=== PATIENT | female | born 1945 | race Caucasian/White ===

== ENCOUNTER → 2017-02-22 | Outpatient (CLI) | payer OTHER | LOC: FIMAGING 15:29 | DX: Z12.31 Encounter for screening mammogram for malignant neoplasm of breast (principal) | CPT/HCPCS: G0202 ==

== ENCOUNTER 2018-02-17 16:21 | Observation (INO) | payer OTHER, MEDICARE ==
--- NOTE | 2018-02-17 17:02 | EDPHY ---
H & P Stated Complaint: shaky, weakness Time Seen by Provider: 02/17/18 17:02 - Personal History Current Tetanus/Diphtheria Vaccine: No Current Tetanus Diphtheria and Acellular Pertussis (TDAP): No - Medical/Surgical History Hx Asthma: No Hx Chronic Respiratory Disease: No Hx Diabetes: No Hx Cardiac Disease: No Hx Renal Disease: No Hx Cirrhosis: No Hx Alcoholism: No Hx HIV/AIDS: No Hx Splenectomy or Spleen Trauma: No Other PMH: cataract surgery BRANDT, PNA, - Social History Smoking Status: Never smoked Constitutional: Initial Vital Signs Temperature (C) 36.5 C 02/17/18 16:27 Heart Rate 83 02/17/18 16:27 Respiratory Rate 16 02/17/18 16:27 Blood Pressure 153/66 H 02/17/18 16:27 O2 Sat (%) 96 02/17/18 16:27 O2 Delivery Mode Room Air Allergies/Adverse Reactions: No Known Allergies Allergy (Unverified 02/17/18 16:27) Home Medications: Medication Instructions Recorded NK [No Known Home Meds] 02/17/18 Medical Decision Making - Diagnostics Imaging Results: Imaging Impressions Chest X-Ray 02/17/18 17:13 Impression: No evidence of acute cardiopulmonary abnormality. Stable chronic findings as above. ED Course/Re-evaluation: CHIEF COMPLAINT: Near syncope, chest pain HISTORY OF PRESENT ILLNESS: The patient is a 72 y/o female arriving via private car complaining of an episode of near syncope and chest pain. Previously , she had an episode of chest pain during a stressful period of her life and a heart monitor showed no significant findings. Around 2:00 PM today, 3 hours ago , she walked up stairs to prepare for an appointment when she looked in the mirror and felt she was pale appearing. Within a minute, she started feeling shaky, faint, and had a near syncopal episode. This episode was accompanied by a pressure in her chest. She attributed her symptoms to hypoglycemia and had a piece of pizza. After eating, she still had the pressure in her chest and shakiness in her hands. Her symptoms have improved but she continues to have milder pressure in her chest. She denies shortness of breath or any other associated symptoms. She has not had a stress test. She is under considerable stress. REVIEW OF SYSTEMS: A 10 point review of systems was performed and is negative with the exception of the elements mentioned in the history of present illness. PHYSICAL EXAM: HR, BP, O2 Sat, RR. Temp noted General Appearance: Alert, well hydrated, appropriate, and non-toxic appearing. Head: Atraumatic without scalp tenderness or obvious injury Eyes: Pupils equal, round, reactive to light and accommodation, EOMI, no trauma , no injection. Ears: Clear bilaterally, no perforation, normal landmarks Nose: Atraumatic, no rhinorrhea, clear. Throat: There is no erythema or exudates, no lesions, normal tonsils, mucus membranes moist. Neck: Supple, 2+ carotid upstroke, nontender, no lymphadenopathy. Respiratory: No retractions, no distress, no wheezes, and no accessory muscle use. Lungs are clear to auscultation bilaterally. Cardiovascular: Regular rate and rhythm, no murmurs, rubs, or gallops. Good capillary refill all extremities. Gastrointestinal: Abdomen is soft, nontender, non-distended, no masses, no rebound, no guarding, no peritoneal signs. Musculoskeletal: Normal active ROM of all extremities, atraumatic. Neurological: Alert, appropriate, and interactive. Skin: No rashes, good turgor, no nodules on palpation. Past medical history: Denies Past surgical history: Denies Family history: Congestive heart failure (father), arrhythmia (brother) Social history: Lives in [place], non-smoker, employed DIAGNOSTICS/PROCEDURES/CRITICAL CARE TIME: The 12 lead EKG was interpreted by myself. Questionable ST inferior depression, poor R wave progression, and inverted T wave in V3. See hard copy and/or "tracemaster" electronic copy for interpretation. Study: PA and Lateral Chest X-ray Indication: Chest pain Results: After viewing the images myself on the PACS system. My interpretation of the images is: no acute process. The radiologist interpretation is pending at the time of this dictation. DIFFERENTIAL DIAGNOSIS: The differential diagnosis for the patient's chest pain included but was not limited to myocardial ischemia, pulmonary embolus, chest wall pain, pleural inflammation, and pulmonary infectious causes. MEDICAL DECISION MAKING: The patient presents with a near syncopal event with lingering chest pressure. She has a family history of cardiac conditions. Her exam is normal. EKG shows questionable ST inferior depression, poor R wave progression, and inverted T wave in V3, concerning for a possible cardiac etiology to symptoms. She continues to have mild symptoms. Plan for chest X-ray , CBC, basic metabolic panel, troponin, BNP, and D-dimer. She has been given 4 baby (80mg) aspirin. 5:20 PM- I spoke to Dr. Nayan Tejada, cardiology. He would like to be informed of her status after her labs have returned 5:25 PM- She continues to experience chest pressure. I have administered 1 inch nitro paste. 5:50 PM- I reassessed the patient. She has become pain free after nitro. Chest X -ray is not acute. I spoke with Dr. Tejada. He advised administering a GI cocktail. I spoke with the patient regarding admission. She agrees to be admitted. Dr. Jackson will be the admitting physician and Dr. Tejada will consult if needed. - Data Points Laboratory Results: Laboratory Results 02/17/18 17:00 02/17/18 17:00 02/17/18 02/17/18 02/17/18 17:00 17:00 17:00 WBC 7.46 10^3/uL 10^3/uL (3.80-9.50) RBC 3.80 10^6/uL L 10^6/uL (4.18-5.33) Hgb 12.1 g/dL L g/dL (12.6-16.3) Hct 36.0 % L % (38.0-47.0) MCV 94.7 fL fL (81.5-99.8) MCH 31.8 pg pg (27.9-34.1) MCHC 33.6 g/dL g/dL (32.4-36.7) RDW 12.7 % % (11.5-15.2) Plt Count 275 10^3/uL 10^3/uL (150-400) MPV 10.4 fL fL (8.7-11.7) Neut % (Auto) 67.7 % % (39.3-74.2) Lymph % (Auto) 19.0 % % (15.0-45.0) [place] % (Auto) 8.3 % % (4.5-13.0) Eos % (Auto) 3.8 % % (0.6-7.6) Baso % (Auto) 0.9 % % (0.3-1.7) Nucleat RBC Rel Count 0.0 % % (0.0-0.2) Absolute Neuts (auto) 5.05 10^3/uL 10^3/uL (1.70-6.50) Absolute Lymphs (auto) 1.42 10^3/uL 10^3/uL (1.00-3.00) Absolute Monos (auto) 0.62 10^3/uL 10^3/uL (0.30-0.80) Absolute Eos (auto) 0.28 10^3/uL 10^3/uL (0.03-0.40) Absolute Basos (auto) 0.07 10^3/uL 10^3/uL (0.02-0.10) Absolute Nucleated RBC 0.00 10^3/uL 10^3/uL (0-0.01) Immature Gran % 0.3 % % (0.0-1.1) Immature Gran # 0.02 10^3/uL 10^3/uL (0.00-0.10) D-Dimer 0.45 ug/mLFEU ug/mLFEU (0.00-0.50) Sodium 143 mEq/L mEq/L (135-145) Potassium 3.9 mEq/L mEq/L (3.5-5.2) Chloride 103 mEq/L mEq/L (97-110) Carbon Dioxide 27 mEq/l mEq/l (22-31) Anion Gap 13 mEq/L mEq/L (8-16) BUN 18 mg/dL mg/dL (7-23) Creatinine 0.8 mg/dL mg/dL (0.6-1.0) Estimated GFR > 60 Glucose 130 mg/dL H mg/dL (70-100) Calcium 9.3 mg/dL mg/dL (8.5-10.4) Magnesium 2.1 mg/dL mg/dL (1.6-2.3) Troponin I < 0.012 ng/mL ng/mL (0.000-0.034) NT-Pro-B Natriuret Pep 66 pg/mL pg/mL (0-125) Medications Given: Discontinued Medications Aspirin (Aspirin) 324 mg PO EDNOW ONE Stop: 02/17/18 17:13 Last Admin: 02/17/18 17:30 Dose: 324 mg Sodium Chloride (Ns) 1,000 mls @ 0 mls/hr IV EDNOW ONE; Wide Open PRN Reason: Protocol Stop: 02/17/18 17:13 Last Admin: 02/17/18 17:30 Dose: 1,000 mls Nitroglycerin (Nitro-Bid 2%) 1 inch TP EDNOW ONE Stop: 02/17/18 17:25 Last Admin: 02/17/18 17:30 Dose: 1 inch Departure - Departure Disposition: [facility] Inpatient Acute Clinical Impression: Near syncope, Acute coronary syndrome Condition: Fair Referrals: June Dawkins MD [Primary Care Provider] - Report Scribed for: Artur Fitzpatrick Report Scribed by: Iqra Brown Date of Report: 02/17/18 Time of Report: 19:05
--- NOTE | 2018-02-17 17:02 | CPEKG ---
Heart Rate: 83 RR Interval: 723 P-R Interval: 152 QRSD Interval: 84 QT Interval: 368 QTC Interval: 433 P [place]: 63 QRS [place]: 42 T Wave [place]: -35 EKG Severity - ABNORMAL ECG - EKG Impression: SINUS RHYTHM EKG Impression: ABNRM R PROG, CONSIDER ASMI OR LEAD PLACEMENT Electronically Signed By: Artur Fitzpatrick 17-Feb-2018 21:02:57
[2018-02-17] MEDS ORDERED: NS 1,000 ML IV ONE (17:12)
[2018-02-17] MEDS ORDERED: ASPIRIN 81 MG CHEWABLE TAB PO ONE (17:12)
[2018-02-17 17:17] LABS: PLATELET COUNT 275 10^3/uL (150-400)
[2018-02-17] MEDS ORDERED: NITROGLYCERIN 2% 1 GM PACKET TP ONE (17:24)
--- NOTE | 2018-02-17 18:19 | CPEKG ---
Heart Rate: 74 RR Interval: 811 P-R Interval: 164 QRSD Interval: 92 QT Interval: 396 QTC Interval: 440 P [place]: 76 QRS [place]: 49 T Wave [place]: 6 EKG Severity - BORDERLINE ECG - EKG Impression: SINUS RHYTHM EKG Impression: BORDERLINE T ABNORMALITIES, ANTERIOR LEADS Electronically Signed By: Artur Fitzpatrick 17-Feb-2018 21:02:57
[2018-02-17] MEDS ORDERED: ACETAMINOPHEN 325 MG TAB PO PRN (18:29)
[2018-02-17] MEDS ORDERED: ONDANSETRON DISINTEGRATING 4 MG TAB PO PRN (18:29)
[2018-02-17] MEDS ORDERED: ONDANSETRON 4 MG/2 ML VIAL IVP PRN (18:29)
--- NOTE | 2018-02-17 18:52 | GHP ---
[f rep st] HISTORY AND PHYSICAL DATE OF ADMISSION: 02/17/2018 HISTORY: The patient is a very pleasant 72-year-old female with minimal past medical history, who pr esents with chest pain. She actually described this as a squeezing in her chest. It is not exertion related. It does not radiate. It is not associated with shortness of breath or diaphoresis. She h as no family history of coronary disease, although her father of aortic stenosis and complicatio ns thereof. She denies history of diabetes, hypertension, or hyperlipidemia. She is a nonsmoker, having quit 40 years ago. No fever, chills, cough, sputum, nausea, vomiting, or diarrhea; although, she had nausea, vomiting, a nd diarrhea about 10 days ago. She acknowledges some psychosocial stressors in that her granddaughter in [place] has been suicidal. S he was just recently visiting there. REVIEW OF SYSTEMS: Complete 10-point review of systems conducted and negative except as noted in the HPI. PAST MEDICAL HISTORY: Non. ALLERGIES: None. HOME MEDICATIONS: None. SOCIAL HISTORY: No tobacco. Occasional alcohol. FAMILY HISTORY: Father of aortic stenosis. PHYSICAL EXAMINATION: VITAL SIGNS: Temperature 36.5, blood pressure 153/66, pulse 83, breathing 16 times a minute, 96% in room air. GENERAL: No acute distress. Sclerae anicteric. Oropharynx clear. Mucous membranes moist. NECK: Supple without lymphadenopathy or JVD. LUNGS: Clear to auscultati on bilaterally. HEART: S1, S2. ABDOMEN: Soft, nontender, nondistended. LOWER EXTREMITIES: Witho ut edema. Calves nontender. SKIN: Without rash. NEUROLOGIC: Nonfocal. LABORATORY DATA: Sodium 143, potassium 3.9, chloride 103, bicarb 27, BUN 18, creatinine 0.8, glucose 130. Troponin less than 0.012. BNP is 66. D-dimer 0.45 hemoglobin and hematocrit are 12 and 36; CBC otherwise normal. Chest x-ray interpreted by me shows no acute cardiopulmonary disease. EKG interpreted by me shows sinus at 83 with normal axis and intervals. There is about a millimeter of ST depression seen in II and aVF; less so in lead III. There is a T-wave inversion in V3/V4. I have discussed the case with Dr. Artur Fitzpatrick. ASSESSMENT/PLAN: 72-year-old female with chest pain. 1. Chest pain. This is a reasonable story given her chest pressure. There are some atypical featur es, too. It looks like troponins. Follow on telemetry and perform exercise treadmill in the morning . 2. Family history of aortic stenosis. She does have a murmur. I will perform echocardiogram. 3. Coronary artery disease workup. I will go ahead and check a lipid panel in the morning. Her blo od sugar is modestly elevated, but it is also a nonfasting sample. DISPOSITION: Observation status. /[id number]/MODL
--- NOTE | 2018-02-18 12:26 | ECHO ---
[email or web address] [address] [address] Main: [phone] Fax: Transthoracic Echocardiogram Name: JUVENTINO MASON MR#: [id number] Study Date: 02/18/2018 Study Time: 08:04 AM Date of : 1945 Age: 72 year(s) Height: 165.1 cm (65 in.) Weight: 58.06 kg (128 lb.) BSA: 1.64 m2 Gender: Female Examination: Echo Indication: HF, Image Quality: Contrast: Requested by: Tommie Jackson BP: 97 mmHg/58 mmHg Heart Rate: Rhythm: Indication: HF, Procedure Staff [employer] Broker: Betty Urban [facility] Reading Physician: Matt Gong MD Requesting Provider: Conclusions: Normal size left ventricle. No LV hypertrophy. Normal global systolic LV function. The ejection fraction is visually estimated to be 60 %. Mild mitral valve regurgitation is present. The aortic valve is normal in appearance and function. The tricuspid valve is normal in appearance and function. Mild to moderate tricuspid valve regurgitation. Right ventricular systolic pressure measures 31mmHg. There is no pulmonic regurgitation seen. No pericardial effusion. Measurements: Chambers Valvular Assessment AV/MV Valvular Assessment TV/PV Normal Normal Normal Name Value Range Name Value Range Name Value Range Ao Kaylynn (2D): 2.9 cm (1.4 cm-2.6 AV meanP mmHg ( - ) TR Vmax: 2.56 mm/s ( - ) cm) GRACE (VTI): 2.6 cm ( - ) TR PGmax: 26 mmHg ( - ) IVSd (2D): 0.8 cm (0.6 cm-1.1 MV E Vmax: 0.78 m/s ( - ) syst. PAP: 31 mmHg ( - ) cm) MV A Vmax: 0.86 m/s ( - ) PV Vmax: 0.72 m/s (0.6 m/s-0.9 LVDd (2D): 3.6 cm (3.9 cm-5.3 MV E/A: 0.91 ( - ) m/s) cm) MV PHT: 0.078 s ( - ) PV PGmax: 2 mmHg ( - ) LVDs (2D): 2.3 cm (2.1 cm-4 cm) MVA (PHT): 2.8 s ( - ) LVPWd (2D): 0.8 cm ( - ) LVOTd 1.8 cm 1.8 cm mm LVEF (BP): 65 % (>=55 %) Visual EF: 60 % RVDd(2D): 3.0 cm (1.9 cm-3.8 cmmm) Patient: JUVENTINO MASON Study Date: 02/18/2018 Page 1 of 2 08:04 AM Continued Measurements: Chambers Valvular Assessment AV/MV Valvular Assessment TV/PV Name Value Name Value Name Value LADs: 2.8 cm MV DecTime: 236 m/s CVP (est.): 5 mmHg LADs Lon.0 cm MV E' Septal: 0.07 m/s LA Area: 11.8 cm2 MV E/E' Septal: 11.40 LA Volume: 34 ml MV E/E' Lateral: 8.20 LA Volume Index: 20.7 ml/m2 RA Area: 14.2 cm2 Additional Vessels Name Value Ao Ascendin.6 cm Inferior Vena Cava: 1.5 cm Findings: Left Ventricle: Normal size left ventricle. No LV hypertrophy. Normal global systolic LV function. The ejection fraction is visually estimated to be 60 %. No regional wall motion abnormality. Normal diastolic LV function. Right Ventricle: Normal size right ventricle. Normal RV function. Left Atrium: The left atrium is normal in size. Right Atrium: The right atrium is normal in size. Mitral Valve: The mitral valve is normal in appearance and function. Mild mitral valve regurgitation is present. No mitral stenosis is present. Aortic Valve: The aortic valve is normal in appearance and function. There is no aortic valve regurgitation. No aortic valve stenosis is present. Tricuspid Valve: The tricuspid valve is normal in appearance and function. Mild to moderate tricuspid valve regurgitation. The pulmonary artery pressure is normal. Right ventricular systolic pressure measures 31mmHg. Pulmonic Valve: Pulmonary valve not well visualized. There is no pulmonic regurgitation seen. Aorta: The aorta is normal. Normal size aortic root measuring 2.9 cm. Normal size ascending aorta measuring 2.6 cm. IVC: The IVC is normal sized. Pericardium: No pericardial effusion. No pleural effusion. (No Signature Object) Patient: JUVENTINO MASON Study Date: 02/18/2018 Page 2 of 2 08:04 AM [id number]
--- NOTE | 2018-02-18 14:04 | CPR ---
[f rep st] NONINVASIVE CARDIAC PROCEDURE REPORT DATE OF PROCEDURE: 02/18/2018 ORDERING PHYSICIAN: Hospitalist. REASON FOR TEST: Chest discomfort. Resting blood pressure 120/70, resting heart rate 76, resting EKG shows a regular sinus rhythm with V 1, V2 Q wave. No arrhythmias. EXERCISE PORTION: She was exercised according to the Naseem protocol for a total of 6 minutes and 16 seconds. She did reach her 100% maximal heart rate. MET level reached 7.2. Peak blood pressure 178/ 70, peak heart rate 149. She had no arrhythmias. She did have, at peak exercise, ST depression in t he inferior and anterior lateral leads. This was reviewed with Dr. Matt Gong and nuclear stress te sting is recommended. She will be set up for a Lexiscan nuclear stress test. RECOVERY: Resting blood pressure 126/76, recovery heart rate 91. Recovery EKG back to a regular sin us rhythm with no ischemia. At this time, due to ST depression with peak exercise, she will be scheduled for a Lexiscan nuclear s tress test. She is stable to return to her room. /[id number]/MODL
[2018-02-18] MEDS ORDERED: REGADENOSON 0.4 MG/5 ML SYR IVP ONE (14:08)
--- NOTE | 2018-02-18 15:05 | CPR ---
[f rep st] NONINVASIVE CARDIAC PROCEDURE REPORT DATE OF PROCEDURE: 02/18/2018 REASON FOR TEST: 1. Chest pain. 2. Abnormal exercise treadmill stress test. Resting EKG shows a regular sinus rhythm with a rate of 75. She has Q-waves in V1, V2. No arrhythmi as. Resting blood pressure 120/80, oxygen saturation 96%, heart rate 75. She is asymptomatic. STRESS PORTION: Lexiscan nuclear stress test. Lexiscan was injected rapidly, followed by saline flush. Cardiolite was then injected, followed by s clara flush. Peak heart rate was 100, blood pressure 130/87, oxygen saturation 97%. After the injec tion, she did feel chest discomfort and flushing. There were no EKG changes. RECOVERY: Her symptoms did spontaneously resolve during recovery. Recovery blood pressure 124/76, he art rate 92, oxygen saturation 97%. There were no EKG changes. At this time, she currently is stable for nuclear imaging. /[id number]/MODL
--- NOTE | 2018-02-18 15:29 | ASMTCASEMG ---
Living Arrangements What is your living Answers: Alone arrangement? Who do you live with? Type Of Residence What kind of residence do Answers: House you live in? Discharge Plan Comments Coordination Status Comments Notes: Pt is a 72 y/o female admitted for near syncope and acute coronary syndrome. Pt is having a stress test and an echo today. Pt will most likely d/c independent when medically stable. No therapies ordered at this time. CM available for changes. Plan: Independent Date Signed: 02/18/2018 03:28 PM Electronically Signed By:KELLY Anand
[2018-02-18 16:39] VITALS: BP 120/74
--- NOTE | 2018-02-18 16:55 | GDS ---
[f rep st] DISCHARGE SUMMARY FINAL DIAGNOSES: 1. Chest pain, noncardiac. 2. Mild to moderate tricuspid regurgitation. HOSPITAL COURSE: A 72-year-old female, admitted with chest pain described as squeezing type sensatio n. Troponins were negative. EKG showed mild T-wave inversions in V3 through V5 as well as II and F. She underwent an exercise treadmill test which was somewhat indeterminate. Because of this, she un derwent a nuclear Lexiscan test with nuclear imaging which was negative for any ischemia or infarct. She had an echocardiogram due to a family history of aortic stenosis as well as a murmur appreciated on exam which showed tricuspid regurgitation, but a normal aortic valve. She has a normal ejection fraction of 60%. I have discussed all these findings with her. She has had a negative cardiac workup. PE is very unl ikely with a D-dimer 0.45. She is discharged in stable condition with no changes in her medications. I suspect this may have been triggered by anxiety as she has some significant stressors in her life . She will need to establish with a new primary care physician, as her previous primary care ronaldoi jaylen has retired. We discussed different options including Dr. Green as well as Dr. Benjamin. /[id number]/MODL
== END 2018-02-18 17:06 | disposition home or self-care (01) ==
LOC: F2W 18:30
PROVIDERS: ADMIT Internal Medicine; ATTEND Student in an Organized Health Care Education/Training Program
DX: R07.9 Chest pain, unspecified (principal); R55 Syncope and collapse; R94.39 Abnormal result of other cardiovascular function study; I36.1 Nonrheumatic tricuspid (valve) insufficiency; R01.1 Cardiac murmur, unspecified; Z87.891 Personal history of nicotine dependence; Z82.49 Family history of ischemic heart disease and other diseases of the circulatory system; Z63.79 Other stressful life events affecting family and household
CPT/HCPCS: 71046; 78452; 93005; 93017; 93306; G0378; J2785